=== PATIENT | female | born 1950 | race Caucasian/White ===

== ENCOUNTER 2020-04-27 11:43 | Outpatient (CLI) | payer MEDICARE, BC, SELFPAY ==
--- NOTE | 2020-04-27 11:50 | MM_ITS ---
WS: [id number] BILATERAL DIGITAL SCREENING MAMMOGRAPHY WITH CAD CLINICAL INFORMATION: SCREENING HISTORY: Screening mammogram. No current complaints. COMPARISON: September 12, 2018 TECHNIQUE: Bilateral CC and MLO views. FINDINGS: Scattered fibroglandular densities bilaterally. No suspicious focal mass, asymmetry, calcifications, or architectural distortion. No evidence of malignancy. Vascular calcification. Lucent centered calci fications. MM/[place] [id number] IMPRESSION: BI-RADS: 2-Benign FOLLOW UP: 1 Year Follow-up Recommend return to annual screening mammography.
== END 2020-04-27 11:44 | disposition home or self-care (01) ==
LOC: RADSHAW 11:47
PROVIDERS: PCP Family Medicine; Visit Provider Family Medicine
DX: Z12.31 Encounter for screening mammogram for malignant neoplasm of breast (principal)
CPT/HCPCS: 77067

== ENCOUNTER 2020-08-11 07:29 | Outpatient (CLI) | payer MEDICARE, BC, SELFPAY ==
[2020-08-11 07:41] VITALS: BMI 31.9
--- NOTE | 2020-08-11 08:08 | NMCV_ITS ---
NM john perf SPECT r/s* [id number] Aida Carbajal Age: 70 Gender: F : 1950 Exam Date: 08/11/2020 08:44 Ordering Phys: Lisbeth Schrader MD ([email or web address]) Technologist: LACY Gilmore Exam Location: [facility] Indications: Chest pain STRESS TEST Please see separate stress test report in [facility] for full findings IMAGE PROTOCOL Rest/Stress 1 Lexiscan Day Radiopharmaceutical Dose (mCi) Administration Site Administered by Rest: Tc-99m 10.9 IV Milagros Jose, CHIEF EXECUTIVE OFFICER Sestamibi Stress:Tc-99m 32.5 IV Milagros Jose, CHIEF EXECUTIVE OFFICER Sestamibi Rest: 11-Aug-2020 60 Discovery 630 Stress: 11-Aug-2020 45 Discovery 630 0.4mg Lexiscan. Images obtained in supine and prone position. SPECT RESULTS Technical Quality: Good Raw Data Analysis: Breast attenuation Image Corrections: No attenuation or motion correction applied Summed Stress Score: 0 Summed Rest Score: 0 Summed Difference Score: 0 PERFUSION FINDINGS Small area of mild reversibility noted in basal inferior inferolateral wall in the absence of wall motion abnormality possible artifact. FUNCTIONAL RESULTS (calculated via Gated SPECT) Stress Image LV EF (%): 77 Stress EDV (mL):71 TID: 1 Stress ESV (mL):16 Rest Image LV EF (%): 77 FUNCTIONAL FINDINGS: There is normal left ventricular systolic function. IMPRESSIONS This study is negative for ischemia, EKG segment will be documented separately. Lisbeth Schrader MD (Electronically Signed) Final Date: 11 August 2020 20:19 S
--- NOTE | 2020-08-11 08:08 | ECG_ITS ---
[facility] Test Date: 2020-08-11 Pat Name: Aida Carbajal Department: Room: Gender: Female K 12 Principal: : 1950 Requested By: Lisbeth Schrader Order Number: [id number] Reading MD: Interpretive Statements Lung unchanged pre/post procedure Intraprocedure shortess of breath Symptoms resoled by discharge [email or web address]
--- NOTE | 2020-08-11 09:14 | SUR.PREOP ---
Patient reports no pain or discomfort prior to the start of the procedure.
[2020-08-11] MEDS: regadenoson 0.4 Mg/5 ml Syringe IVP (09:26)
[2020-08-11 09:49] VITALS: BP 126/64; PULSE 68
== END 2020-08-11 07:30 | disposition home or self-care (01) ==
LOC: CDL 07:31
PROVIDERS: PCP Family Medicine; Visit Provider Orthopaedic Surgery Orthopaedic Surgery of the Spine
DX: Z01.810 Encounter for preprocedural cardiovascular examination (principal); R06.02 Shortness of breath; R07.9 Chest pain, unspecified
CPT/HCPCS: 78452; 93017; A9500; J2785